=== PATIENT | male | born 1985 | race Caucasian/White ===

== ENCOUNTER 2025-01-06 01:28 | Emergency (ER) | payer SELFPAY ==
[2025-01-06 01:35] VITALS: BP 138/98; PULSE 92; RESP 18; TEMP 37.1; O2SAT 97
[2025-01-06 02:16] LABS: Add Urine Microscopic? NO; Appearance Urine Clear (Clear); Glucose Urine UA 3+ mg/dL (Negative); Leukocyte Esterase Ur Negative LEU/UL (Negative); Nitrate Urine Negative (Negative); Specific Grav Ur 1.039 (1.001-1.035)
--- OUTSIDE RECORDS SUMMARY | 2025-01-06 02:26 | XMS_ITS | Encounter Summary ---
Author Organization [facility] Healthcare Address [address] [place] [address] Care Team Providers Care Pleasure Craft Sailor Name Role Phone No, Physician Primary Care Provider [phone] Encounter Details Date Type Department Care Team (Late st Contact Info) Description 12/09/2024 Results Follow-Up [facility] Emergency Department [address] [place] [address] Indra Valentin MD [address] [place] [address] N. gonorrhoeae/C. trachomatis Amplification Urine Social History Tobacco Use Types Packs/Day Years Used Date Smoking Tobacco: Never Assessed Sex and Gender Information Value Date Recorded Sex Assigned at Not on file Legal Sex Male 12:50 AM CDT Gender Identity Not on file Sexual Orientation Not on file documented as of this encounter Plan of Treatment Not on file documented as of this encounter Visit Diagnoses Not on filedocumented in this encounter Care Teams Pleasure Craft Sailor Relationship Specialty Start Date End Date No, Physician PCP - General 12/09/24 documented as of this encounter
--- OUTSIDE RECORDS SUMMARY | 2025-01-06 02:26 | XMS_ITS | Clinical Summary ---
Author Organization [facility] Address [address] [place] [address] Care Team Providers Care Spd Tech Name Role Phone No, Physician Primary Care Provider [phone] Allergies Active Allergy Reactions Criticality Noted Date Comments Penicillin Anaphylaxis High 12/09/2024 Venom-Wasp Anaphylaxis High 12/09/2024 Medications doxycycline (VIBRAMYCIN) 100 mg capsule Take 1 tablet/cap josias (100 mg total) by mouth 2 (two) times a day for 7 days 14 tablet/capsul e 12/09/2024 Encounters Date Type Department Care Team Description 12/09/2024 1:00 AM CDT - 12/09/2024 2:01 AM CDT Emergency [facility] Emergency Department [address] [place] [address] Indra Valentin MD Urethritis (Primary Dx) Discharge Disposition: Discharge to home or self care 12/09/2024 Results Follow-Up [facility] Emergency Department [address] [place] [address] Indra Valentin MD N. gonorrhoeae/C. trachomatis Amplification Urine from Last 3 Months Social History Tobacco Use Types Packs/Day Years Used Date Smoking Tobacco: Never Assessed Sex and Gender Information Value Date Recorded Sex Assigned at Not on file Legal Sex Male 12:50 AM CDT Gender Identity Not on file Sexual Orientation Not on file Last Filed Vital Signs Vital Sign Reading Time Taken Comments Blood Pressure 174/85 12/09/2024 12:56 AM CDT Pulse 104 12/09/2024 12:56 AM CDT Temperature 36.4 C (97.6 F) 12/09/2024 12:56 AM CDT Respiratory Rate 16 12/09/2024 12:56 AM CDT Oxygen Saturation 99% 12/09/2024 12:56 AM CDT Inhaled Oxygen Concentration - - Weight 81.4 kg (179 lb 7.3 oz) 12/09/2024 12:56 AM CDT Height 177.8 cm (5' 10) 12/09/2024 12:56 AM CDT Body Mass Index 25.75 12/09/2024 12:56 AM CDT Plan of Treatment Health Maintenance Due Date Last Done Comments Depression Screening 1987 Hepatitis C Screening 1987 DTaP/Tdap/Td Vaccine (1 - Tdap) 1998 Varicella Vaccines (1 of 2 - 13+ 2-dose series) 02/07/2000 Hepatitis B Screening 2005 Regular Well Visit/Exam 18-64 2005 HPV Vaccines (1 - 3-dose SCD M series) 2014 Influenza Vaccine (#1) 2025 04/05/2022 Pneumococcal vaccine <65 Aged Out No longer eligible based on patient's age to complete this topic Procedures Procedure Name Priority Date/Time Associated Diagnosis Comments URINALYSIS, MICROSCOPIC ONLY STAT 12/09/2024 1:23 AM CDT URINE CULTURE STAT 12/09/2024 1:23 AM CDT TRICHOMONAS VAGINALIS PCR STAT 12/09/2024 1:23 AM CDT N. GONORRHOEAE/C. TRACHOMATIS AMPLIFICATION STAT 12/09/2024 1:23 AM CDT URINALYSIS AND REFLEX TO MICROSCOPIC AND CULTURE STAT 12/09/2024 1:23 AM CDT from Last 3 Months Results * (ABNORMAL) N. gonorrhoeae/C. trachomatis Amplification Urine (12/09/2024 1:23 AM CDT) C. trachomatis Not Detected Not Detected N. gonorrhoeae Detected(A) Not Detected ELIER SAM ([place]) Comment: Interpretive Data This assay detects Chlamydia trachomatis and Neisseria gonorrhoeae by nucleic acid amplification testing (NAAT). This assay has been cleared by the [place] Food and Drug administration. The performance characteristics of this test have been verified by the [facility]. The performance characteristics of this test have not been evaluated in individuals less than 14 years of age. Current Interpretive Data last revised 2023. Urine (None) 12/09/2024 1:23 AM CDT 12/09/2024 1:32 AM CDT Indra Valentin MD LAB MICROBIOLOGY - GENERAL ORDERABLES Final Result Performing Organization Address [facility] de Phone Number ELIER VARGAS ([place]) [address] [place] [address] * Trichomonas vaginalis PCR Urine (12/09/2024 1:23 AM CDT) Pathologist [facility] [place] Trichomonas DNA Not Detected Not Detected Urine 12/09/2024 1:23 AM CDT 12/09/2024 1:32 AM CDT Narrative ELIER SAM ([place]) - 12/09/2024 2:41 AM CDT Interpretive Data: This assay detects Trichomonas vaginalis by nucleic acid amplification testing (NAAT). This assay has been cleared by the [place] Food and Drug administration. The performance characteristics of this test have been verified by the [facility] laboratory. Excess blood in specimens may be inhibitory and result in false negative results. The performance of this test has not been evaluated in women or individuals less than 18 years of age. Indra Valentin MD LAB MICROBIOLOGY - GENERAL ORDERABLES Final Result Performing Organization Address City/[facility] Co de Phone Number ELIER VARGAS ([place]) [address] [place] [phone] * (ABNORMAL) Urinalysis reflex to microscopic and culture Urine (12/09/2024 1:23 AM CDT) Color, ur Straw Yellow Clarity, ur Clear Clear CERNER A ([place]) Specific gravity, ur 1.032(H) 1.003 - 1.030 [facility] ([place]) pH, urine 5.5 [facility] ([place]) Comment: Interpretive Data U rine pH is affected by diet, medications, systemic acid-base disturbances, and renal tubular function. pH may affect urinary stone formation. For example, urine pH below 6.0 may help reduce the tendency for calcium phosphate stones and pH greater than 6.0 may reduce the tendency for uric acid stone formation. Source: [facility] [employer] Current Interpretive Data was last revised on 2017 Protein, ur ql Negative Negative [facility] ([place]) Glucose, ur ql 4+(A) Negative [facility] ([place]) Ketones, ur Negative Negative [facility] ([place]) Bilirubin, ur Negative Negative [facility] ([place]) Blood, ur Negative Negative [facility] ([place]) Urobilinogen, ur <2.0 <2.0 mg/dL [facility] ([place]) Nitrite, ur Negative Negative CERNER A ([place]) Leukocyte esterase, ur 1+(A) Negative [facility] ([place]) UA reflex comment Reflex to microscopic UA will be performed. [facility] ([place]) Urine 12/09/2024 1:23 AM CDT 12/09/2024 1:32 AM CDT us Indra Valentin MD LAB MICROBIOLOGY - GENERAL ORDERABLES Final Result [facility]IER [facility] ([place]) 1 [facility] Department [place] [address] * (ABNORMAL) Urinalysis, microscopic only (12/09/2024 1:23 AM CDT) WBC, ur 11-20(A) 0 - 5 /HPF RBC, ur 0-2 0 - 2 /HPF [facility] ([place]) Culture Reflex Comment Reflex to urine culture will be performed. ELIER [facility] ([place]) Urine 12/09/2024 1:23 AM CDT 12/09/2024 1:32 AM CDT us Indra Valentin MD LAB URINE ORDERABLE S Final Result Performing Organization Address City/[facility]/ZIP Co de Phone Number ELIER VARGAS ([place]) 1 [facility] [place] [address] * Urine culture Urine (12/09/2024 1:23 AM CDT) Report Final Report: Less than 100,000 colonies/mL (clinically insignificant growth based on current clinical standards) Comment:Testing performed by : [facility], [address] [facility] [place]., [address] Organism (CLINICALLY INSIGNIFICANT GROWTH ELIER VARGAS ([place]) Urine 12/09/2024 1:23 AM CDT 12/09/2024 3:57 AM CDT Narrative ELIER VARGAS ([place]) - 12/10/2024 7:28 AM CDT Urine culture reflexed based upon urinalysis results. Testing performed by [facility] ([phone]) us Indra Valentin MD LAB MICROBIOLOGY - GENERAL ORDERABLES Final Result Performing Organization Address City/[facility]/ZIP Co de Phone Number ELIER VARGAS ([place]) 1 [facility] [id number] [place] [address] from Last 3 Months Care Teams Spd Tech Relationship Specialty Start Date End Date No, Physician PCP - General 12/09/24
--- NOTE | 2025-01-06 02:38 | ED_ITS ---
HPI - Male Genitourinary General Chief complaint: Urogenital-Male Stated complaint: wants STD testing Time Seen by Provider: 01/06/25 01:41 History of Present Illness HPI Narrative: Patient is a 39-year-old male who presents to the emergency department this evening accompanied by his significant other for STD check. Patient states that he has noticed a white penile discharge and some mild burning when he pees periods believes that the girl that he was with before his current partner give him either gonorrhea or chlamydia. He denies any additional symptoms including abdominal pain, any fevers or chills. Denies any penile rash or ulcerations. Related Data Allergies Allergy/AdvReac Type Severity Reaction Status Date / Time No Known Allergies Allergy Verified 01/06/25 03:44 Review of Systems Review of Systems: All systems are reviewed and are negative unless stated otherwise in the HPI. Exam Narrative: General: Alert, awake, afebrile, in no acute distress. HEENT: PERRL, no rhinorrhea, no post nasal drip, oropharynx clear. Neck: Trachea midline, no JVD, no lymphadenopathy. Cardiovascular: Regular rate and rhythm, no murmurs, rubs or gallops, no peripheral edema. Respiratory: Clear to auscultation bilaterally, no tachypnea, no wheezing, no rhonchi, no rubs, no respiratory distress. Abdomen: Soft, nontender, nondistended, no rebound, no guarding, no peritoneal signs. Musculoskeletal: No joint swelling or deformity, normal muscle tone. Skin: No rashes or petechia, no signs of infection. Psychiatric: Alert and oriented, normal behavior and judgment for situation. Neurological: Alert and oriented to person, place, and time. Follows all commands. No focal deficits, speech is clear and fluent. Course Vital Signs Vital signs: Vital Signs Temperature 98.7 F 01/06/25 01:35 Pulse Rate 92 01/06/25 01:35 Respiratory Rate 18 01/06/25 01:35 Blood Pressure 138/98 H 01/06/25 01:35 Pulse Oximetry 97 01/06/25 01:35 Oxygen Delivery Room Air 01/06/25 01:35 Temperature 98.7 F 01/06/25 01:35 Pulse Rate 92 01/06/25 01:35 Respiratory Rate 18 01/06/25 01:35 Blood Pressure 138/98 H 01/06/25 01:35 Pulse Oximetry 97 01/06/25 01:35 Oxygen Delivery Room Air 01/06/25 01:35 MDM - Male Genitourinary MDM Narrative Medical decision making narrative: The patient was evaluated by myself in the emergency department. History is obtained from patient who is an independent historian and physical exam was performed. External medical records were reviewed at this time. Urinalysis unremarkable. STD testing did return back positive for gonorrhea patient patient was informed this. Administered his 1st dose of IM Rocephin in the emergency department and informed that he will be sent home with a script for doxycycline to take for the next 7 days and patient is agreeable as planned. Differential diagnosis considerations include urinary tract infection, STD including gonorrhea, chlamydia, Trichomonas. Comorbidities impacting this visit include none. I have evaluated and discussed social determinants of health with the patient that could potentially impact subsequent diagnosis and treatment plans. On repeat assessment of the patient, reevaluation revealed that the patient is doing well and is in no acute distress. Patient symptoms have improved since he arrived to our emergency department. Repeat vital signs were all reviewed and noted to be stable. Differential diagnosis and treatment plan were discussed with the patient at bedside. Patient agrees with discussion and after shared medical decision making agrees with discharge. All questions were answered to the patient's satisfaction. Patient will follow up with his PCP in 3-5 days. Patient was provided with strict return precautions and instructed to return to the emergency department if any new or worsening symptoms develop. The patient was discharged in stable condition. Lab Data Labs: Lab Results 01/06/25 Range/Units 01:39 Urine Color Yellow (Yellow) Urine Appearance Clear (Clear) Urine pH 7.0 (5.0-9.0) Ur Specific [place] 1.039 H (1.001-1.035) Urine Protein Negative (Negative) mg/dL Urine Glucose (UA) 3+ H (Negative) mg/dL Urine Ketones Negative (Negative) mg/dL Ur Blood (Man) Negative (Negative) Urine Nitrate Negative (Negative) Urine Bilirubin Negative (Negative) Urine Urobilinogen 0.2 (<2.0) mg/dL Leukocyte Esterase Rfl Negative (Negative) AMBER/UL C. trachomatis (PCR) Not detected (NOT DETECTE) N. gonorrhoeae (PCR) Detected A (NOT DETECTE) T. vaginalis (PCR) Not detected (NOT DETECTE) Discharge Plan Discharge Clinical Impression: Gonococcal infection Patient Disposition: Home Condition: Improved Instructions: Antibiotic Form, Gonorrhea (ED) Additional Instructions: Please follow-up with the family doctor within the next 3-5 days. Return to ED if any new or worsening symptoms develop. Take the prescribed antibiotic as instructed for the next 7 days. Patient Language: French Prescriptions: New doxycycline hyclate 100 mg capsule 100 mg PO BID 7 Days Qty: 14 0RF Follow-up/Referrals: PHYSICIAN,[employer] [Primary Care Provider, Internal Medicine] Louis Gibson MD [Physician, Family Practice] - 3 Days Time of Disposition: 03:45
[2025-01-06 03:11] LABS: Trichomonas Vag PCR NOT DETECTED (NOT DETECTE)
[2025-01-06] MEDS: cefTRIAXone 500 MG VIAL IM (03:58)
== END 2025-01-06 04:00 | disposition home or self-care (01) ==
PROVIDERS: Emergency Provider Emergency Medicine
DX: A54.00 Gonococcal infection of lower genitourinary tract, unspecified (principal)
CPT/HCPCS: 81003; 87491; 87591; 87661; 96372; 99283; J0696